=== PATIENT | female | born 2000 | race Caucasian/White ===

== ENCOUNTER 2020-03-15 03:20 | Inpatient (IN) | payer MEDICAID ==
[2020-03-15] VITALS (15 sets, daily range): BP systolic 111–150; BP diastolic 34–90
[~2020-03-15] VITALS: Ht 167.6 cm; Wt 70.3 kg
--- NOTE | 2020-03-15 03:30 | NUR ---
Dr. Boles at bedside for MSE.
[2020-03-15] MEDS ORDERED: PANTOPRAZOLE SODIUM 40 MG VIAL IV ONE (03:45)
[2020-03-15] MEDS ORDERED: ONDANSETRON 4 MG/2 ML VIAL IV ONE (03:45)
[2020-03-15] MEDS ORDERED: IV NORMAL SALINE 1000 ML BAG IV ONE ×2 (03:45→05:30)
[2020-03-15] MEDS ORDERED: ONDANSETRON 4 MG/2 ML VIAL ONE (03:48)
[2020-03-15] MEDS ORDERED: PANTOPRAZOLE SODIUM 40 MG VIAL ONE (03:48)
[2020-03-15 04:14] LABS: BASOPHILS % (AUTO) 0.4 % (0.0-2.0); EOSINOPHILS % (AUTO) 0.2 % (0.0-7.0); HEMATOCRIT 45.2 % (31.2-41.9); HEMOGLOBIN 14.1 g/dL (10.9-14.3); LYMPHOCYTES # (AUTO) 1.9 K/uL (20.0-40.0); LYMPHOCYTES % (AUTO) 16.2 % (20.5-51.5); MEAN CORPUSCULAR HEMOGLOBIN 26.3 uug (24.7-32.8); MEAN CORPUSCULAR HGB CONC 31 g/dL (32.3-35.6); MEAN CORPUSCULAR VOLUME 84.3 fL (75.5-95.3); MONOCYTES # (AUTO) 0.6 K/uL (2.0-10.0); MONOCYTES % (AUTO) 5.6 % (0.0-11.0); NEUTROPHILS % (AUTO) 77.6 % (38.5-71.5); PLATELET COUNT (AUTO) 430 K/uL (179-408); RED BLOOD CELL COUNT(AUTO) 5.36 MIL/uL (3.63-4.92); WHITE BLOOD COUNT (AUTO) 11.6 K/uL (3.8-11.8)
[2020-03-15 04:15] LABS: *BILIRUBIN,URIN NEGATIVE (NEGATIVE); *BLOOD, URINE NEGATIVE (NEGATIVE); *CLARITY,URINE SLIGHTLY CLOUDY (CLEAR); *COLOR,URINE LIGHT YELLOW (YELLOW); *KETONES,URINE 4+ (NEGATIVE); *UROBILINOGEN,URINE 0.2 E.U./dl (NORMAL); LEUKOCYTE ESTERASE ,URINE NEGATIVE (NEGATIVE); NITRITE, URINE NEGATIVE (NEGATIVE)
[2020-03-15 04:18] LABS: UGLUCOSE 2+ (NEGATIVE)
--- NOTE | 2020-03-15 04:18 | NUR ---
Xray at bedside.
[2020-03-15 04:21] LABS: ALANINE AMINOTRANSFERASE 20 U/L (14-59); ALKALINE PHOSPHATASE 145 U/L (50-136); ASPARTATE AMINOTRANSFERASE 18 U/L (15-37); BILIRUBIN,DIRECT 0.3 mg/dL (0.0-0.2); BILIRUBIN,TOTAL 0.7 mg/dL (0.2-1.0); CHLORIDE 98 mmol/L (98-107); CREATININE 1.2 mg/dL (0.6-1.3); LIPASE 57 U/L (73-393); POTASSIUM 4.4 mmol/L (3.5-5.1); UREA NITROGEN, BLOOD 8 mg/dL (7-18)
[2020-03-15 04:21] LABS: *URINE HCG, QUAL NEGATIVE (NEGATIVE)
[2020-03-15 04:24] LABS: *AMPHETAMINE, URINE POSITIVE (NEGATIVE); *CANNABINOID, URINE POSITIVE (NEGATIVE); *COCCAINE, URINE NEGATIVE (NEGATIVE); *OPIATE, URINE NEGATIVE (NEGATIVE); *PHENCYCLIDINE SCREEN,URINE NEGATIVE (NEGATIVE)
[2020-03-15 04:27] LABS: CARBON DIOXIDE 7 mmol/L (21-32); GLUCOSE 476 mg/dL (74-106)
[2020-03-15] MEDS ORDERED: INSULIN REGULAR, HUMAN 300 UNIT/3 ML VIAL IV ONE (04:30)
[2020-03-15] MEDS ORDERED: INSULIN REGULAR, HUMAN 300 UNIT/3 ML VIAL ONE (04:34)
[2020-03-15] MEDS ORDERED: INSU100V7 SQ (04:39)
[2020-03-15] MEDS ORDERED: humalog SUBCUT (04:39)
--- NOTE | 2020-03-15 05:02 | NUR ---
Ramin hu in [facility] - 03/15/[address] at [address] Boles on panel call with Dr. Demetrius Dockery. Patient accepted for admission to [facility], diagnosis: uncontrolled diabetes.
--- NOTE | 2020-03-15 05:02 | NUR ---
Dr. Boles on panel call with Dr. Demetrius Dockery. Patient accepted for admission to CCU, diagnosis: uncontrolled diabetes mellitus.
--- NOTE | 2020-03-15 05:14 | NUR ---
Report given to Jagdish MASSEY CCU.
[2020-03-15] MEDS ORDERED: MORPHINE SULFATE 2 MG/1 ML DISP.SYRIN IV PRN (05:30)
[2020-03-15] MEDS ORDERED: LORAZEPAM 2 MG/1 ML VIAL IV PRN ×2 (05:30→07:00)
[2020-03-15] MEDS: INSULIN REGULAR, HUMAN 100 UNIT in IV NORMAL SALINE 99 ML IV PRN ×4 (06:00→20:21)
[2020-03-15] MEDS ORDERED: LORAZEPAM 2 MG/1 ML VIAL IV ONE ×2 (06:41→18:55)
[2020-03-15] MEDS ORDERED: IV 1/2NS 1000 ML 1,000 ML IV PRN (07:00)
--- NOTE | 2020-03-15 07:07 | NUR ---
Report given to Katherine de la torre.
--- NOTE | 2020-03-15 07:10 | NUR ---
Pt resting in bed, chewing on ice chips. No c/o pain N/V at this time.
[2020-03-15 07:17] LABS: BASOPHILS % (AUTO) 0.1 % (0.0-2.0); HEMATOCRIT 41.9 % (31.2-41.9); HEMOGLOBIN 13.4 g/dL (10.9-14.3); LYMPHOCYTES % (AUTO) 4.5 % (20.5-51.5); MEAN CORPUSCULAR HEMOGLOBIN 26.3 uug (24.7-32.8); MEAN CORPUSCULAR HGB CONC 32 g/dL (32.3-35.6); MEAN CORPUSCULAR VOLUME 82.3 fL (75.5-95.3); MONOCYTES # (AUTO) 1.9 K/uL (2.0-10.0); MONOCYTES % (AUTO) 8.2 % (0.0-11.0); NEUTROPHILS # (AUTO) 19.7 K/uL (1.8-8.9); NEUTROPHILS % (AUTO) 87.2 % (38.5-71.5); PLATELET COUNT (AUTO) 414 K/uL (179-408); RED BLOOD CELL COUNT(AUTO) 5.09 MIL/uL (3.63-4.92); WHITE BLOOD COUNT (AUTO) 22.6 K/uL (3.8-11.8)
[2020-03-15 07:29] LABS: ALANINE AMINOTRANSFERASE 19 U/L (14-59); ALKALINE PHOSPHATASE 144 U/L (50-136); ASPARTATE AMINOTRANSFERASE 12 U/L (15-37); BILIRUBIN,TOTAL 0.4 mg/dL (0.2-1.0); CHLORIDE 107 mmol/L (98-107); CREATINE KINASE, TOTAL 90 U/L (26-192); CREATININE 1.1 mg/dL (0.6-1.3); GLUCOSE 242 mg/dL (74-106); PHOSPHOROUS 3.4 mg/dL (2.5-4.9); POTASSIUM 4.4 mmol/L (3.5-5.1); TOTAL PROTEIN, SERUM 8.7 g/dL (6.4-8.2); UREA NITROGEN, BLOOD 7 mg/dL (7-18)
[2020-03-15 07:46] LABS: CARBON DIOXIDE 6 mmol/L (21-32)
--- NOTE | 2020-03-15 08:00 | NUR ---
Continue insulin drip while transfer to CCU2.
--- NOTE | 2020-03-15 08:19 | NUR ---
Patient in from E.R. AAOx1, severe tremors noted. insulin drip running at 1unit/hr. vitals as follow HR of 120, sbp of 122/69, rr 18,1005 saturation R.A. admitting Md. will be notified.
--- NOTE | 2020-03-15 08:21 | NUR ---
As per reporting rn. CO2 of 6 reported by lab while pt. still in the E.R.
--- NOTE | 2020-03-15 08:45 | NUR ---
Admitting physician Dr. Yi in the unit to see and examine patient. Full report given see order hx.
[2020-03-15] MEDS: PANTOPRAZOLE SODIUM 40 MG TABLET.DR PO SCH (09:02)
[2020-03-15] MEDS: MULTIVITAMINS,THERAPEUTIC TABLET PO SCH (09:03)
[2020-03-15] MEDS: BLOOD SUGAR DIAGNOSTIC 1 EACH STRIP VI SCH ×16 (09:04→23:54)
--- NOTE | 2020-03-15 09:30 | NUR ---
pt. restless agitated getting out of bed unsupervised and not following commands. Gait unsteady and at times getting aggressive.
[2020-03-15] MEDS: IV NS 1000 ML 1,000 ML IV PRN ×2 (10:28→18:35)
[2020-03-15 10:50] LABS: ABG BASE EXCESS -25.9 mmol/L; ABG HCO3 2.3 mmol/L; ABG PCO2 8.4 mmHg (35.0-45.0); ABG PH 7.051 (7.350-7.450); ABG PO2 129.4 mmHg (75.0-100.0); ABG SITE LEFT BRACHIAL; COHb 0.5 % (0.5-1.5); MetHb 0.4 % (0.0-1.5); O2Hb 97.5 % (94.0-97.0); VENT MODE Room Air
[2020-03-15] MEDS: LORAZEPAM 2 MG/1 ML VIAL IV PRN ×3 (11:04→16:34)
[2020-03-15 12:21] LABS: BASOPHILS # (AUTO) 0.1 K/uL (0.0-8.0); BASOPHILS % (AUTO) 0.4 % (0.0-2.0); HEMATOCRIT 36.8 % (31.2-41.9); HEMOGLOBIN 11.6 g/dL (10.9-14.3); LYMPHOCYTES # (AUTO) 2.1 K/uL (20.0-40.0); LYMPHOCYTES % (AUTO) 8.1 % (20.5-51.5); MEAN CORPUSCULAR HEMOGLOBIN 26.3 uug (24.7-32.8); MEAN CORPUSCULAR HGB CONC 32 g/dL (32.3-35.6); MEAN CORPUSCULAR VOLUME 83.3 fL (75.5-95.3); MONOCYTES % (AUTO) 7.7 % (0.0-11.0); NEUTROPHILS # (AUTO) 21.9 K/uL (1.8-8.9); NEUTROPHILS % (AUTO) 83.8 % (38.5-71.5); PLATELET COUNT (AUTO) 435 K/uL (179-408); RED BLOOD CELL COUNT(AUTO) 4.42 MIL/uL (3.63-4.92); WHITE BLOOD COUNT (AUTO) 26.2 K/uL (3.8-11.8)
[2020-03-15 12:36] LABS: CHLORIDE 111 mmol/L (98-107); GLUCOSE 259 mg/dL (74-106); MAGNESIUM 1.9 mg/dL (1.8-2.4); PHOSPHOROUS 3.3 mg/dL (2.5-4.9); POTASSIUM 4.6 mmol/L (3.5-5.1); UREA NITROGEN, BLOOD 5 mg/dL (7-18)
[2020-03-15 12:42] LABS: CARBON DIOXIDE < 5 mmol/L (21-32)
--- NOTE | 2020-03-15 12:45 | NUR ---
critical labs reported to attending physician, orders received. See order hx. ABG orders for 1430. Orders to given 1 amp of Bicarb if PH goes below 6.9.
--- NOTE | 2020-03-15 12:50 | NUR ---
Patient remains with periods of restlessness agitation, remains confused and attempting to get out of bed unsupervised.
[2020-03-15] MEDS ORDERED: IV D5 1/2 NS 1000 ML 1,000 ML IV PRN (14:30)
[2020-03-15 14:35] LABS: ABG BASE EXCESS -25.5 mmol/L; ABG HCO3 2.4 mmol/L; ABG PCO2 8.5 mmHg (35.0-45.0); ABG PH 7.066 (7.350-7.450); ABG PO2 123.8 mmHg (75.0-100.0); ABG SITE RIGHT RADIAL; ABG TOTAL HEMOGLOBIN 13.2 G/dL (12.0-16.0); COHb 0.3 % (0.5-1.5); MetHb 0.4 % (0.0-1.5); O2Hb 97.4 % (94.0-97.0); VENT MODE ROOM AIR
--- NOTE | 2020-03-15 14:41 | NUR ---
ABG results in current PH. 7.066.
[2020-03-15 16:40] LABS: CHLORIDE 107 mmol/L (98-107); CREATININE 1.1 mg/dL (0.6-1.3); GLUCOSE 254 mg/dL (74-106); UREA NITROGEN, BLOOD 5 mg/dL (7-18)
[2020-03-15 16:52] LABS: CARBON DIOXIDE < 5 mmol/L (21-32)
--- NOTE | 2020-03-15 19:00 | NUR ---
received patient , lethargic , temp axillary 99.9 , hr of 137 . bp of 139/ 77 . 100% oxygen saturation on ra , , ns at 125 ml an insulin drip at 1 unit , running on midline juan , hurd intact , 1900 bs 279 , increase to 2 units
[2020-03-15] MEDS: ACETAMINOPHEN 650 MG SUPP.RECT RC PRN (20:27)
[2020-03-15] MEDS ORDERED: VANCOMYCIN IV 1,000 MG in IV DEXTROSE 5% 250 ML IV ONE (22:27)
[2020-03-15] MEDS ORDERED: PIPERACILLIN/TAZOBACTAM/D5W 50 ML IV ONE (23:33)
[2020-03-15] MEDS ORDERED: VANCOMYCIN IV 200 ML ONE (23:33)
[2020-03-15] MEDS: PIPERACILLIN SODIUM/TAZOBACTAM 3.375 G in IV DEXTROSE 5% 50 ML IV SCH (23:37)
[2020-03-16] VITALS (24 sets, daily range): BP systolic 95–139; BP diastolic 38–118
[2020-03-16] MEDS: BLOOD SUGAR DIAGNOSTIC 1 EACH STRIP VI SCH ×24 (00:59→23:57)
[2020-03-16] MEDS: LORAZEPAM 2 MG/1 ML VIAL IV PRN ×3 (01:32→20:37)
[2020-03-16] MEDS: ACETAMINOPHEN 650 MG SUPP.RECT RC PRN ×2 (04:10→20:28)
[2020-03-16] MEDS: IV NS 1000 ML 1,000 ML IV PRN (04:10)
[2020-03-16 05:43] LABS: CREATININE 1.1 mg/dL (0.6-1.3); POTASSIUM 3.7 mmol/L (3.5-5.1)
[2020-03-16 05:57] LABS: BILIRUBIN,DIRECT 0.1 mg/dL (0.0-0.2); BILIRUBIN,TOTAL 0.3 mg/dL (0.2-1.0); TOTAL PROTEIN, SERUM 7.8 g/dL (6.4-8.2)
--- NOTE | 2020-03-16 06:09 | NUR ---
arousable to pain , with intermittent sluggish eye opening , insulin drip at 2 units , ns at 125 ml , abg done , results reported to
[2020-03-16 06:11] LABS: ABG BASE EXCESS -19.7 mmol/L; ABG HCO3 5.4 mmol/L; ABG PCO2 13.3 mmHg (35.0-45.0); ABG PH 7.225 (7.350-7.450); ABG PO2 101.5 mmHg (75.0-100.0); ABG SITE LEFT RADIAL; ABG TOTAL HEMOGLOBIN 12.9 G/dL (12.0-16.0); COHb 0.5 % (0.5-1.5); MetHb 0.3 % (0.0-1.5); O2Hb 97.6 % (94.0-97.0); VENT MODE room air
[2020-03-16] MEDS: PANTOPRAZOLE SODIUM 40 MG TABLET.DR PO SCH (06:59)
[2020-03-16] MEDS: PIPERACILLIN SODIUM/TAZOBACTAM 3.375 G in IV DEXTROSE 5% 50 ML IV SCH ×4 (07:40→23:19)
[2020-03-16] MEDS: MULTIVITAMINS,THERAPEUTIC TABLET PO SCH (07:52)
[2020-03-16] MEDS: INSULIN REGULAR, HUMAN 100 UNIT in IV NORMAL SALINE 99 ML IV PRN ×4 (07:52→20:05)
[2020-03-16] MEDS: IV D5W-0.45% NS +20 KCL 1,000 ML IV SCH ×3 (08:01→21:07)
[2020-03-16] MEDS ORDERED: SWABABLE VALVE TRANSFER SET EA MC ONE (08:02)
[2020-03-16] MEDS ORDERED: IOHEXOL 300MG/ML 100 ML INFUS..BTL ONE (08:03)
[2020-03-16] MEDS ORDERED: IV NORMAL SALINE 250 ML IV ONE (08:03)
[2020-03-16] MEDS: VANCOMYCIN IV 1,000 MG in IV DEXTROSE 5% 250 ML IV SCH ×2 (08:45→18:19)
--- NOTE | 2020-03-16 09:25 | NUR ---
Pt noted to be very agitated, restless trying to get oob repeatedly. Attempted to reorient pt, but pt not following commands.
--- NOTE | 2020-03-16 09:45 | NUR ---
IV Ativan proven effective. Pt noted to be calm and relaxed. Will continue to monitor.
--- NOTE | 2020-03-16 10:11 | NUR ---
Consent for CT Abd/Pelvis with contrast signed by ER Dr. Hernandez and ENVIRONMENTAL ENGINEER SCIENTIST Iva Lawrence. Pt unable to sign consent at this time d/t condition. No contacts provided and unable to reach any family.
--- NOTE | 2020-03-16 10:25 | NUR ---
Brought pt down with radiologist for CT Abd/Pelvis. Pt stable and nad noted upon leaving the unit.
--- NOTE | 2020-03-16 10:50 | NUR ---
Pt returned from CT Abd/Pelvis. Pt stable and nad noted upon returning to the unit.
--- NOTE | 2020-03-16 10:55 | NUR ---
HUNTING GUIDE Iva Lawrence here to see pt. Full report given. No new orders received. To continue insulin drip.
--- NOTE | 2020-03-16 12:04 | NUR ---
Spoke with DAYANA Enrique regarding potassium level recheck frequency (per pharmacy) for pt. New orders received and carried out.
[2020-03-16 12:41] LABS: CREATININE 1.2 mg/dL (0.6-1.3); POTASSIUM 3.5 mmol/L (3.5-5.1)
--- NOTE | 2020-03-16 19:00 | NUR ---
received patient with spontaneous eye opening , unable to follow command on RA , iv of d5 1/ 2 ns + 20 meq kcl at 125 ml running , indulun drip at 2 units , hurd intact , temp 99. 4 , hr of 122 , bp of 109/ 61 , 97 %oxygen saturation
[2020-03-16 19:39] LABS: CREATININE 1.2 mg/dL (0.6-1.3)
--- NOTE | 2020-03-16 20:00 | NUR ---
dr rubio notified of pharmacis't request about dka inslun protocol about potassium , waiting for call back
[2020-03-17] VITALS (23 sets, daily range): BP systolic 91–137; BP diastolic 41–94
[2020-03-17] MEDS: VANCOMYCIN IV 1,000 MG in IV DEXTROSE 5% 250 ML IV SCH ×2 (00:17→08:30)
[2020-03-17 00:39] LABS: CREATININE 1.1 mg/dL (0.6-1.3)
[2020-03-17 00:47] LABS: POTASSIUM 2.8 mmol/L (3.5-5.1)
--- NOTE | 2020-03-17 00:50 | NUR ---
nara dhillon was called and notified of critical value of k , received orders
[2020-03-17] MEDS: BLOOD SUGAR DIAGNOSTIC 1 EACH STRIP VI SCH ×13 (01:02→20:05)
[2020-03-17] MEDS: POTASSIUM CHLORIDE 50 ML IV SCH ×13 (01:06→23:03)
--- NOTE | 2020-03-17 05:00 | NUR ---
last bag of potassium ended at 5 am
[2020-03-17] MEDS: PIPERACILLIN SODIUM/TAZOBACTAM 3.375 G in IV DEXTROSE 5% 50 ML IV SCH ×3 (05:21→18:33)
[2020-03-17 05:49] LABS: BASOPHILS # (AUTO) 0.1 K/uL (0.0-8.0); BASOPHILS % (AUTO) 0.6 % (0.0-2.0); EOSINOPHILS % (AUTO) 0.1 % (0.0-7.0); HEMATOCRIT 35.1 % (31.2-41.9); HEMOGLOBIN 11.6 g/dL (10.9-14.3); LYMPHOCYTES # (AUTO) 2.8 K/uL (20.0-40.0); LYMPHOCYTES % (AUTO) 22.2 % (20.5-51.5); MEAN CORPUSCULAR HEMOGLOBIN 26.3 uug (24.7-32.8); MEAN CORPUSCULAR HGB CONC 33 g/dL (32.3-35.6); MEAN CORPUSCULAR VOLUME 79.2 fL (75.5-95.3); MONOCYTES # (AUTO) 1.3 K/uL (2.0-10.0); MONOCYTES % (AUTO) 10.6 % (0.0-11.0); NEUTROPHILS # (AUTO) 8.4 K/uL (1.8-8.9); NEUTROPHILS % (AUTO) 66.5 % (38.5-71.5); PLATELET COUNT (AUTO) 232 K/uL (179-408); RED BLOOD CELL COUNT(AUTO) 4.43 MIL/uL (3.63-4.92); WHITE BLOOD COUNT (AUTO) 12.5 K/uL (3.8-11.8)
[2020-03-17 05:52] LABS: POTASSIUM 3.6 mmol/L (3.5-5.1)
--- NOTE | 2020-03-17 06:00 | NUR ---
patient is arousable to light touch robles m sleeping soundly , on RA , KCL 40 MEQ IV GIVEN , D5 1/ 2 NS + 20 MEQ KCL AT125 ML running , insulin drip running , iv site juan midline intact . hurd intact , no fever note d
--- NOTE | 2020-03-17 07:15 | NUR ---
Received pt. on bed sleeping arousable to pain, when awake pt. disoriented, drowsy. Miranda catheter to gravity. On R.A with saturation wnl.. SR, low ST.
[2020-03-17] MEDS: INSULIN REGULAR, HUMAN 100 UNIT in IV NORMAL SALINE 99 ML IV PRN ×2 (07:47)
[2020-03-17] MEDS: IV D5W-0.45% NS +20 KCL 1,000 ML IV SCH (08:18)
[2020-03-17] MEDS: MULTIVITAMINS,THERAPEUTIC TABLET PO SCH (08:19)
[2020-03-17] MEDS: PANTOPRAZOLE SODIUM 40 MG VIAL IV SCH (08:19)
--- NOTE | 2020-03-17 10:14 | NUR ---
Attending Olimpia Latif in the unit to see and examine patient, at this time orders to dcd insulin drip received and implemented. see order hx.
[2020-03-17] MEDS ORDERED: DEXTROSE 50% 50 ML DISP.SYRIN IV PRN (10:15)
[2020-03-17] MEDS: INSULIN REGULAR, HUMAN 300 UNIT/3 ML VIAL SQ PRN ×3 (12:05→20:06)
[2020-03-17] MEDS ORDERED: IV D5W-0.45% NS +20 KCL 1,000 ML IV PRN (12:15)
[2020-03-17 12:24] LABS: CREATININE 0.9 mg/dL (0.6-1.3); POTASSIUM 2.9 mmol/L (3.5-5.1)
[2020-03-17] MEDS: VANCOMYCIN IV 1,250 MG in IV DEXTROSE 5% 250 ML IV SCH (16:50)
[2020-03-17] MEDS: POTASSIUM CHLORIDE 20 MEQ in IV NS 1000 ML 1,000 ML IV PRN (17:14)
[2020-03-17 18:29] LABS: POTASSIUM 2.9 mmol/L (3.5-5.1)
--- NOTE | 2020-03-17 19:30 | NUR ---
Report received. Patient sleeping, easily arouses to name but still drowsy. Follows commands well but disoriented to place and time. Reoriented PRN. NAD noted.
--- NOTE | 2020-03-17 20:15 | NUR ---
Aqnk=509.2 orally. Spoke to Iva Lawrence NP re: Q6H BMP and patient's temp. Orders received. Tylenol given po. No swallowing difficulty. Patient is having her menstrual period. Cleaned; pad provided.
[2020-03-17] MEDS: ACETAMINOPHEN 325 MG TABLET PO PRN (20:36)
[2020-03-17] MEDS ORDERED: INSULIN GLARGINE,HUM 300 UNITS/3 ML CARTRIDGE SQ SCH (21:00)
[2020-03-18] VITALS (17 sets, daily range): BP systolic 123–145; BP diastolic 57–96
[2020-03-18 00:07] LABS: CREATININE 1.4 mg/dL (0.6-1.3); POTASSIUM 3.6 mmol/L (3.5-5.1)
[2020-03-18] MEDS: VANCOMYCIN IV 1,250 MG in IV DEXTROSE 5% 250 ML IV SCH (01:09)
--- NOTE | 2020-03-18 04:00 | NUR ---
Bath given. Patient is having heavy menstrual flow. Linens changed and Vaginal pad provided. Nauseated after bath. Zofran IV given.
[2020-03-18] MEDS: ONDANSETRON 4 MG/2 ML VIAL IV PRN (04:16)
--- NOTE | 2020-03-18 04:41 | NUR ---
Zxsthkvts=847; repeated= 442. mix technician here. Another accucheck using blood taken by tech blood anpev=575. Insulin coverage given. Patient sleeping but easily arouses to name. VS stable. Skin warm and dry.
[2020-03-18] MEDS: BLOOD SUGAR DIAGNOSTIC 1 EACH STRIP VI SCH ×7 (04:45→23:37)
[2020-03-18] MEDS: INSULIN REGULAR, HUMAN 300 UNIT/3 ML VIAL SQ PRN ×6 (04:51→23:40)
--- NOTE | 2020-03-18 04:53 | NUR ---
Chen Sosa notified of abnormal accucheck.
[2020-03-18 05:12] LABS: BASOPHILS % (AUTO) 0.5 % (0.0-2.0); EOSINOPHILS % (AUTO) 0.4 % (0.0-7.0); HEMATOCRIT 32.4 % (31.2-41.9); HEMOGLOBIN 10.8 g/dL (10.9-14.3); LYMPHOCYTES # (AUTO) 1.4 K/uL (20.0-40.0); LYMPHOCYTES % (AUTO) 18.9 % (20.5-51.5); MEAN CORPUSCULAR HEMOGLOBIN 26.7 uug (24.7-32.8); MEAN CORPUSCULAR HGB CONC 33 g/dL (32.3-35.6); MONOCYTES # (AUTO) 0.9 K/uL (2.0-10.0); NEUTROPHILS # (AUTO) 5.2 K/uL (1.8-8.9); NEUTROPHILS % (AUTO) 68.2 % (38.5-71.5); PLATELET COUNT (AUTO) 192 K/uL (179-408); RED BLOOD CELL COUNT(AUTO) 4.05 MIL/uL (3.63-4.92); WHITE BLOOD COUNT (AUTO) 7.7 K/uL (3.8-11.8)
--- NOTE | 2020-03-18 05:30 | NUR ---
Chen Sosa SKEIN YARD DRIER ordered to cover accucheck with current sliding scale. 20 units Subcutaneously was given @9816
[2020-03-18 05:31] LABS: POTASSIUM 4.4 mmol/L (3.5-5.1); TOTAL PROTEIN, SERUM 6.3 g/dL (6.4-8.2)
[2020-03-18 05:33] LABS: PHOSPHOROUS 0.6 mg/dL (2.5-4.9)
[2020-03-18] MEDS: PIPERACILLIN SODIUM/TAZOBACTAM 3.375 G in IV DEXTROSE 5% 50 ML IV SCH ×6 (05:46→23:13)
[2020-03-18] MEDS: POTASSIUM CHLORIDE 20 MEQ in IV NS 1000 ML 1,000 ML IV PRN (05:47)
[2020-03-18] MEDS: PANTOPRAZOLE SODIUM 40 MG VIAL IV SCH (06:47)
--- NOTE | 2020-03-18 06:58 | NUR ---
Accucheck repeated =387. Patient awake, disoriented to place. Reoriented. VS stable. NAD noted.
--- NOTE | 2020-03-18 07:30 | NUR ---
Patient in bed, awake. On Room Air sat 100%, No signs of distress noted. afebrile. Miranda catheter draining with yellow Urine. 0700 blood sugar was 387. Kept clean and comfortable.
--- NOTE | 2020-03-18 08:00 | NUR ---
0800 Blood sugar 365, 20 units give as ordered for sliding scale.
[2020-03-18] MEDS: MULTIVITAMINS,THERAPEUTIC TABLET PO SCH (09:00)
[2020-03-18] MEDS ORDERED: SODIUM PHOSPHATE MM 15 MMOL in IV NORMAL SALINE 250 ML IV ONE (09:30)
--- NOTE | 2020-03-18 09:54 | NUR ---
eval was done, received an order from to start patient on Pureed diet with Regular liquids.
[2020-03-18] MEDS ORDERED: POTASSIUM PHOSPHATE MM 15 MMOL in IV NORMAL SALINE 250 ML IV ONE (10:00)
[2020-03-18] MEDS ORDERED: INSULIN GLARGINE,HUM 300 UNITS/3 ML CARTRIDGE SQ SCH ×2 (10:30→21:00)
[2020-03-18] MEDS ORDERED: IV NS 1000 ML 1,000 ML IV PRN (10:30)
[2020-03-18] MEDS ORDERED: IV D5%-1/2NS-KCL 10 MEQ 1,000 ML IV PRN (11:15)
--- NOTE | 2020-03-18 12:00 | NUR ---
current BS 176, will give 4 units per sliding scale.
--- NOTE | 2020-03-18 12:13 | NUR ---
Paraffin Plant Sweater Operator Consultation: Due to COVID-19 precautions, this manager social media completed this assessment with the patient over the telephone. Patient is a 19 year old female who was brought to the ED by ambulance on 03/15/20 for uncontrolled diabetes. Patient was awake and receptive to speaking with this SW. Patient stated that the night before being brought to the ED, patient had used "alot of meth and benzo's and I was throwing up and became paranoid". Patient reports that she was living at a detox facility located at [address] [place] [address]. Patient's boyfriend Tom is also at the same detox facility. Patient stated that she cannot remember the name of the detox facility. Patient stated that prior to the detox facility, the patient and her boyfriend were homeless for 2 weeks after they left [facility] living in [place]. Patient reports use of methamphetamines and benzodiazepines, along with weed, cigarettes, and alcohol. Patient stated that she mostly uses meth and benzo's several times a week, whenever she is able to get some, stating "I would ask people to see if they had any to give me". Patient reported no past or current SI or HI, and patient denies mental illness. No reported history of psychiatric hospitalization. Patient is originally from [place], and moved to [place] with her ex-boyfriend about 1 1/2 years ago to go to a detox facility (current boyfriend is not the same boyfriend that she moved to [place] with). SW asked patient to provide an emergency contact, however patient stated that she did not really have anyone to contact. Patient is alert, and oriented. Patient's speech was at times muffled, low, and slightly incoherent, but patient's responses were appropriate. SW had to ask patient to repeat her answer a few times throughout this interview, and patient was cooperative. Thought process was appropriate. DC plans were discussed, and patient stated that she would like to return to the detox facility that she came from. SW to coordinate with case management to ensure a safe and proper discharge. SW to also follow-up with the patient and provide her with appropriate community resources.
[2020-03-18] MEDS: ACETAMINOPHEN 325 MG TABLET PO PRN (12:37)
--- NOTE | 2020-03-18 12:51 | NUR ---
HOSEA spoke with DAMION Ace for care coordination. Db stated he would follow-up with discharge planning. This SW will follow-up with providing patient with resources. HOSEA will continue to work with case management, as needed, to ensure a proper and safe discharge.
[2020-03-18 13:25] LABS: CREATININE 2.8 mg/dL (0.6-1.3); POTASSIUM 3.5 mmol/L (3.5-5.1)
--- NOTE | 2020-03-18 14:17 | NUR ---
gave report to palmira, patient will be transfer to room 310.
--- NOTE | 2020-03-18 14:52 | NUR ---
received from ccu via wheel chair to room 306 in stable condition vs are stable call light with in reach
--- NOTE | 2020-03-18 15:45 | NUR ---
pt blood sugar is 477 md made aware new orders received noted and carried out
[2020-03-18] MEDS: IV NS 1000 ML 1,000 ML IV PRN (16:25)
--- NOTE | 2020-03-18 20:25 | NUR ---
Patient sleeping in bed. Was woken up to check blood sugar levels and give insulin. Blood sugar was 381 and gave 20 units regular insulin based on insulin sliding scale. Patient tolerated well. No signs of acute distress. Bed is locked and in lowest position. Will continue to monitor.
[2020-03-19 00:15] VITALS: BP 109/64
[2020-03-19] MEDS: ONDANSETRON 4 MG/2 ML VIAL IV PRN (00:59)
--- NOTE | 2020-03-19 01:00 | NUR ---
Patient was nauseous with no emesis so prn Zofran 4mg was given at 0059. Patient tolerated medication well
[2020-03-19] MEDS: IV NS 1000 ML 1,000 ML IV PRN (03:41)
[2020-03-19] MEDS: BLOOD SUGAR DIAGNOSTIC 1 EACH STRIP VI SCH ×3 (03:55→12:07)
[2020-03-19 04:02] VITALS: BP 120/70
[2020-03-19] MEDS: PIPERACILLIN SODIUM/TAZOBACTAM 3.375 G in IV DEXTROSE 5% 50 ML IV SCH ×2 (05:02→11:57)
[2020-03-19] MEDS: PANTOPRAZOLE SODIUM 40 MG VIAL IV SCH (06:02)
--- NOTE | 2020-03-19 06:29 | NUR ---
Patient slept intermittently throughout the night. She had some dry coughing on/off. Otherwise, no s/s of respiratory distress or any pain. At 0030H pt had a BM and her Miranda became contaminated so it was removed. At 0355H her blood sugar level was 79. Patient denies dizziness or any discomfort. Safety measures initiated. Will endorse to day shift.
--- NOTE | 2020-03-19 07:30 | NUR ---
Asked SAFETY DEPOSIT CLERK Ketommie regarding diet order. New order of advanced diet as tolerated and robitussin 15mL for cough q6 PRN.
[2020-03-19] MEDS ORDERED: GUAIFENESIN/CODEINE 5 ML LIQUID UDC PO PRN (07:45)
[2020-03-19] MEDS: INSULIN REGULAR, HUMAN 300 UNIT/3 ML VIAL SQ PRN ×2 (07:57→12:10)
[2020-03-19] MEDS: MULTIVITAMINS,THERAPEUTIC TABLET PO SCH (08:00)
--- NOTE | 2020-03-19 08:00 | NUR ---
Received patient in bed. ADELINE midline patent and intact with NS running at 100mL/hr. No complaints of pain. Patient not in acute distress. Will continue to monitor. Blood sugar 246 gave 8 units of insulin per sliding scale.
[2020-03-19] MEDS ORDERED: GUAI5SYR4 PO (10:04)
[2020-03-19] MEDS ORDERED: ACET325T53 PO (10:04)
[2020-03-19] MEDS ORDERED: INSU100V28 SQ (10:04)
[2020-03-19] MEDS ORDERED: Blood Sugar Diagnostic VI (10:04)
[2020-03-19 11:57] VITALS: BP 117/72
--- NOTE | 2020-03-19 12:26 | NUR ---
11:30am: This SW followed up with the patient this morning in order to provide her with community resources. Patient was in her assigned bed when SW entered the room. Patient was awake, and receptive to meeting with this SW. SW explained to the patient that case management has not been able to identify the detox facility that patient was residing at prior to this hospitalization, and asked the patient if she remembers the name of the facility. Patient provided the name [facility] as the detox facility she was at. SW then discussed the community resources in the homeless resource directory that this SW can provide to the patient. Patient initially declined the resources, stating "are they shelters, because I don't want shelters". SW stated that homeless shelters are included in the packet of resources, along with locations of food pantries, places for hot meals and showers, medical clinics, mental health/case management services, and other homeless resources. At this time, patient stated "ok, you can just put it on the table here", pointing to the tray table. SW provided patient with the homeless resource packet which includes the following resources: a list of year round shelters [facility] [address], ; [facility] [address] [facility], ; and [facility] [address] [facility], [phone], along with resources for places to go for food, showers, substance abuse treatment, mental health services, community medical clinics, and pharmacies. These include the following: the [facility] homeless directory which provides a list of places that individuals can go to throughout the week for hot meals, sack lunches, food pantries, and showers; a list of mental health clinics: [facility] [address] [place] [address], ; [facility] [address] [facility] [place] [address], ; [facility] [address] [place] [address], ; a list of medical clinics: [facility] [address], [place]. [place], ; [facility] [address] [facility] [address], [address], [place] [address]; [facility] [address] [facility] [place] [address], ; and a list of substance abuse programs: [facility] ; [facility] ; [facility] ; [facility] ; [facility] ; [facility] [phone]; [facility] [phone]; locations of pharmacies. SW attempt to locate contact information for [facility], but was unsuccessful. SW returned to the patient's room and informed the patient that information about [facility] was not found. SW asked the patient if there was anyone that can assist with identifying the name of the detox facility, and patient provided this SW with the phone number to her boyfriend, Tom, . Patient stated that patient had also provided her boyfriend's phone number to the director of casework. SW then spoke with DAMION Ace, who stated that he attempted to call the boyfriend but the phone number was disconnected. SW returned to the patient's room to let her know that the patient's boyfriend's phone number was a disconnected number and therefore SW/CM were unable to connect with him. Patient stated she does not have any additional contact information, but was waiting for a call back from "Jazz" at the detox facility. SW asked the patient to obtain a contact number from Jazz and provide it to the nurse, who can in turn provide it to this SW and/or CM. Patient agreed. SW informed DAMION Ace, SHILPA Recio, and charge nurse Alfreda of above. SHILPA Recio and charge nurse Alfreda were also informed by this SW that patient has been provided with the homeless resources packet. SW prepared the homeless patient waiver form and endorsed it to SHILPA Recio to have the patient sign upon discharge. SHILPA Recio expressed agreement. SW to follow-up with nursing this afternoon to check if additional contact information was gathered from the patient regarding the detox facility that patient wants to return to.
--- NOTE | 2020-03-19 13:10 | NUR ---
Patient with order to be discharged to [facility] [place]. Patient AO x 4. No signs of distress. No complaints of pain. Discharge instruction given to patient and patient verbalized understanding. All belongings sent home with patient. Removed midline, cardiac cath rn, and ID band. Patient picked up by [employer] arranged by detox center.
--- NOTE | 2020-03-19 14:11 | NUR ---
2:00pm: SW called discharge door operator Rohoni to follow-up on status of patient. Alfreda informed this SW that patient was able to provide additional information regarding the detox facility she was residing in, [facility] P# [phone]. Alfreda stated that DAMION Ace contacted the facility and DC plans were finalized. See CM notes. Alfreda stated that [facility] sent transportation for the patient, and patient was discharged. No further interventions needed at this time.
[2020-03-20] MEDS ORDERED: PANTOPRAZOLE SODIUM 40 MG TABLET.DR PO SCH (07:00)
== END 2020-03-19 13:10 | disposition home or self-care (01) | DRG 720 ==
LOC: ER 03:24 → CCU 07:49 → TELE3 03-18 14:48
PROVIDERS: ADMIT Internal Medicine; ATTEND Nurse Practitioner Acute Care
PROC: 05H533Z Insertion of Infusion Device into Right Subclavian Vein, Percutaneous Approach (ICD-10-PCS; principal; 2020-03-15)
DX: A41.9 Sepsis, unspecified organism (principal); E10.10 Type 1 diabetes mellitus with ketoacidosis without coma; G92 Toxic encephalopathy; F15.10 Other stimulant abuse, uncomplicated; E83.39 Other disorders of phosphorus metabolism; F17.210 Nicotine dependence, cigarettes, uncomplicated; N17.0 Acute kidney failure with tubular necrosis; Z59.0 Homelessness; Z79.4 Long term (current) use of insulin; R03.0 Elevated blood-pressure reading, without diagnosis of hypertension; Z91.19 Patient's noncompliance with other medical treatment and regimen; F12.90 Cannabis use, unspecified, uncomplicated
CPT/HCPCS: 36415; 36600; 70030-TC; 71045; 83605; 83690; 83735; 84100; 84703; 85025; 87040; 93005; A4663; C9113; G0378; J1815; J2060; J2270; J2405; J2543; J3370; J3480; J3490; J7030; J7050; J7060; Q9967